=== PATIENT | female | born 1970 | race Caucasian/White ===

== ENCOUNTER 2017-06-27 14:36 | Emergency (ER) | payer OTHER ==
[2017-06-27] MEDS ORDERED: LORazepam 2 MG/ML MDV IVPUSH ONE (15:40)
[2017-06-27] MEDS ORDERED: Atenolol 25 MG Tab PO ONE (15:40)
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
[2017-06-27] MEDS ORDERED: Labetalol 100 MG/20 ML MDV IVPUSH ONE ×2 (17:15→17:20)
--- NOTE | 2017-06-28 10:59 | CR ---
Chest: Portable view of the chest was obtained. Comparison: No prior study. Heart size is normal. Upper mediastinum is within normal limits. Lungs are clear. Impression: 1. Nothing acute is identified on portable chest x-ray. Diagnostic code #1
== END 2017-06-27 18:00 | disposition home or self-care (01) ==
LOC: EDBD → MERGE 14:36 → JD.ED 14:36
DX: I10 Essential (primary) hypertension (principal); F41.9 Anxiety disorder, unspecified; F17.210 Nicotine dependence, cigarettes, uncomplicated; Z79.899 Other long term (current) drug therapy
CPT/HCPCS: 36415; 71010; 80053; 84443; 84484; 85025; 85610; 85730; 93005; 96374; 99284; A9270; J2060; 93010